=== PATIENT | male | born 2000 | race African-American/Black ===

== ENCOUNTER 2020-09-06 11:51 | Day surgery (SDC) | payer OTHER, SELFPAY ==
[2020-09-01 10:13] VITALS: BMI 23.5
[~2020-09-06 11:51] MED LIST: Bupivacaine HCl 0.5%/Epinephrine 1:200,000/PF 30 ml Vial ONE; Dexamethasone 20 MG/5 ML VIAL ONE; Ketorolac Tromethamine 30 MG/ML VIAL ONE; Ondansetron PF 4 MG/2 ML Vial ONE; PROPOFOL 200 MG/20 ML VIAL ONE; diphenhydrAMINE 50 MG/ML VIAL ONE
[2020-09-06] MEDS ORDERED: Fentanyl 100 MCG/2 ML VIAL ONE ×3 (13:59→17:11)
[2020-09-06] MEDS ORDERED: Midazolam HCl 2 mg/2 ml Vial ONE ×2 (13:59→14:44)
[2020-09-06] MEDS ORDERED: Bupivacaine PF 0.5% 30 ML VIAL ONE (14:46)
[2020-09-06] MEDS ORDERED: Sodium Chloride 0.9% 10 ML ONE (14:46)
[2020-09-06] MEDS ORDERED: Thrombin 5000 UNITS/5 ML VIAL ONE (15:51)
[2020-09-06] MEDS ORDERED: Bacitracin Zinc Ointment 30 gm TUBE ONE (15:51)
--- NOTE | 2020-09-06 17:43 | RAD ---
Exam:Exam: Intraoperative fluoroscopy. HISTORY: ORIF right fifth metacarpal fracture COMPARISON: None FINDINGS: Fluoroscopic views demonstrate internal fixation of a right fifth metacarpal fracture. Ther e is a plate with multiple screws traversing the fifth metacarpal. Exposure: 62.3 seconds. 1.22 mGy IMPRESSION: Fluoroscopy as above
--- NOTE | 2020-09-07 00:54 | OP ---
DATE OF PROCEDURE: 09/06/2020 PREOPERATIVE DIAGNOSIS: Right malunion with shortening and malrotation, small finger metacarpal shaft fracture. POSTOPERATIVE DIAGNOSIS: Right malunion with shortening and malrotation, small finger metacarpal shaft fracture, with malunion in 2 planes, apex, dorsal angulation of 50 degrees, shortening of almost 6 mm with a solid callus dorsally and comminuted palmarly. PROCEDURES PERFORMED: 1. Open resection of malunion, open treatment of malunion small free metacarpal shaft using C-arm supervision in multiple planes. 2. Internal fixation with bone graft, corticocancellous chips approximately 8 mL primarily palmarly and radially. 3. MP joint arthrotomy with capsulotomy dorsal. 4. C-arm supervision, less than or equal to 1 hour. SPECIMENS: None. ESTIMATED BLOOD LOSS: 20 mL. TOURNIQUET TIME: 76 minutes. INDICATION: The patient was injured sometime around the week of June. He wore a splint intermittently, but noticed a progressive dorsal "bump" with pain using enrichment specialist and complained that his finger was rotated "away from the body." When he had all these problems, malrotation, shortening, and a malunion, it was felt that the best treatment would be to do open treatment of the malunion, and then repair the fracture as needed to include possible bone graft and internal fixation. DESCRIPTION OF PROCEDURE: After successful general endotracheal anesthesia, the limb was prepped and draped. A time-out was done appropriately. Although the C-arm was brought into the field, we clinically confirmed and on radiographs that the apex of his deformity was the apex of the fracture. It was, however, once the tourniquet was inflated after limb exsanguination, that he did not require Marcaine because he had a one-shot regional block at this right upper extremity. We carried the incision through skin and subcutaneous tissue and immediately saw the bulging callus that had been out the interosseous muscle. We dissected the superficial ulnar nerve and then retracted it away from the center of the field. We the 2 extensors to the small finger into that interval and exposed the fracture. It was a hard dorsal callus, and as it progressed palmarly, it had healed at an oblique angle and required almost a sliding-type osteotomy. There was moderate comminution palmarly, thus we felt that we would probably have some gap formation at least 1/3 of cortical requiring bone graft, so bone graft was brought into the room. This would be corticocancellous. We then used the C-arm to guide us in the fracture fragments as economically as possible without causing further comminution. Once we found the fracture line and expanded it, this left us with an oblique fracture line that was approximately 4.5 mm long and had some comminution palmarly. We then corrected rotation and the limb to a best fit leaving the fracture slightly elongated at 0.5 mm palmarly and slightly contracted dorsally. We then held this with a clamp and matched the rotation with the opposite side, then we removed it and began nonunion techniques. We did petalling, we did drilling of the cortex and re-established an interosseous canal on both sides of the fracture. We then drilled petals all around circumferentially on both sides, until we had bleeding bone surfaces, and then we were ready for the reduction. We re-reduced it, held it in position with a large reduction clamp and then used a 2.0, 6-hole plate with 3 holes on either side of the fracture. We began proximal with the fixation, had excellent opposition and then once we got the first screw to the opposite side of the fracture, we placed this in an oblique enough mode to help to reduce the gap formation. No lag screws were placed. We now had 6 cortices distal and 6 cortices proximal to the fracture and there was no malrotation. The reduction was anatomic in frontal plane. There was a small 1 mm direct cortical volar defect that we filled in with bone graft and then we augmented it circumferentially. We took final radiographs, which showed the reduction as seen, but before we could leave, we tried to do passive flexion, we could only achieve 70 degrees passive flexion, so we extended the interval excision between the 2 extensor tendons to the small finger, lifted up the retinaculum in the center, and did a capsulotomy dorsally. This allowed us to get 100 degrees of passive flexion with no spring back and we could still see rotation was maintained. We now placed our final bone graft corticocancellous chips approximately 7 to 8 mL with most being placed palmarly and some placed direct laterally and medially. We released the tourniquet and obtained hemostasis. We closed the interval between the 2 extensor mechanisms loosely with a [id number] 3-0 Vicryl undyed suture. We used 3-0 Monocryl undyed running subcutaneous suture and the superficial ulnar nerve was intact grossly. We then closed the skin with hemostasis using interrupted 4-0 nylon in a simple pattern. The patient then had a bulky dressing applied with a 4-inch splint incorporating the small, ring, and long finger and left the operating room with the MP joints held at 75 degrees of flexion, leaving the operating room without evidence of anesthetic or operative complication. Job ID: [id number]
== END 2020-09-06 20:13 | disposition home or self-care (01) ==
LOC: SDC 11:51
PROVIDERS: ATTEND Orthopaedic Surgery Hand Surgery
PROC: 3E0T3BZ Introduction of Anesthetic Agent into Peripheral Nerves and Plexi, Percutaneous Approach (ICD-10-PCS; principal; 2020-09-06)
PROC: 0PSP04Z Reposition Right Metacarpal with Internal Fixation Device, Open Approach (ICD-10-PCS; principal; 2020-09-06)
PROC: 0RNU0ZZ Release Right Metacarpophalangeal Joint, Open Approach (ICD-10-PCS; principal; 2020-09-06)
DX: S62.326A Displaced fracture of shaft of fifth metacarpal bone, right hand, initial encounter for closed fracture (principal); G89.18 Other acute postprocedural pain; X58.XXXA Exposure to other specified factors, initial encounter
CPT/HCPCS: 76000; C1713; J0690; J1100; J1200; J1885; J2250; J2405; J2704; J3010; J3490; S0020

== ENCOUNTER 2023-01-23 06:48 | Emergency (ER) | payer SELFPAY ==
[2023-01-23] MEDS ORDERED: Ibuprofen 800 MG TAB ONE (07:20)
[2023-01-23 08:00] LABS: #Eosinphils 0.1 thou/uL (0.0-0.7); #Monocytes 0.4 thou/uL (0.11-0.59); #Neutrophils 2.6 thou/uL (1.40-6.50); %Basophils 0.6 % (0.0-1.0); %Eosinophils 2.5 % (0.0-10.0); %Lymphocytes 34.7 % (21.0-51.0); %Monocytes 9.1 % (0.0-10.0); %Neutrophils 52.9 % (42.0-75.0); Hemoglobin 14.6 g/dL (14.0-18.0); Mean Corpuscular HGB CONC 33.6 g/dL (32.0-36.0); Mean Corpuscular Hemoglobin 34.1 pg (27.0-31.0); Mean Corpuscular Volume 101.6 fl (78.0-98.0); Mean Platelet Volume 8.8 fL (7.4-10.4); Platelet Count 298 10x3/uL (130-400); RBC Distribution Width 11.3 % (11.5-14.5); Red Blood Cell (RBC) Count 4.28 mill/uL (4.70-6.10); White Blood Cell (WBC) Count 4.8 10x3/uL (4.8-10.8)
[2023-01-23 08:27] LABS: ALT (SGPT) 21 U/L (8-55); AST (SGOT) 23 U/L (5-34); Albumin 4.3 g/dL (3.5-5.0); Alkaline Phosphatase 51 U/L (40-110); Anion Gap 12 mmol/L (10-20); BUN (Urea Nitrogen) 13 mg/dL (8.9-20.6); Bilirubin, Total 0.5 mg/dL (0.2-1.2); Calc. Creatinine Clearance 0 mL/min (70-130); Calcium 9.8 mg/dL (7.8-10.44); Carbon Dioxide 27 mmol/L (22-29); Chloride 104 mmol/L (98-107); Estimated GFR 94; Glucose 89 mg/dL (70-105); Lipase 21 U/L (8-78); Potassium 4.1 mmol/L (3.5-5.1); Protein, Total 7.3 g/dL (6.0-8.3); Sodium 139 mmol/L (136-145)
== END 2023-01-23 09:40 | disposition home or self-care (01) ==
LOC: ERS 06:48
DX: R07.9 Chest pain, unspecified (principal); F17.290 Nicotine dependence, other tobacco product, uncomplicated
CPT/HCPCS: 36415; 71046; 80053; 83690; 84484; 85025; 93005

== ENCOUNTER 2023-01-28 20:00 | Emergency (ER) | payer SELFPAY ==
[2023-01-28] MEDS ORDERED: predniSONE 20 MG TAB ONE (20:26)
[2023-01-28] MEDS ORDERED: Ibuprofen 800 MG TAB ONE (20:26)
== END 2023-01-28 21:13 | disposition home or self-care (01) ==
LOC: ERS 20:00
DX: J02.9 Acute pharyngitis, unspecified (principal); F17.290 Nicotine dependence, other tobacco product, uncomplicated
CPT/HCPCS: 87081; 87430; 99283; J7512